=== PATIENT | female | born 1995 | race Caucasian/White ===

== ENCOUNTER 2019-03-04 09:00 | Emergency (ER) | payer OTHER ==
[2019-03-04 09:09] VITALS: BP 135/62
--- NOTE | 2019-03-04 09:30 | ED Physician Documentation ---
PD HPI URI - Stated complaint Stated Complaint: BODYACHE/THROAT PX - Chief complaint Chief Complaint: Heent - History obtained from History obtained from: Patient - History of Present Illness Timing - onset: How many days ago (2) Timing duration: Days (2) Timing details: Abrupt onset, Still present Associated symptoms: Nasal congestion, Sinus pain, Sore throat, Dry cough. No: Fever, Ear pain, Productive cough, Hemoptysis, Chest pain, Dyspnea, NVD Contributing factors: Other (none) Improves by: Nothing Worsened by: Other (nothing) Similar symptoms before: Has not had sx before Recently seen: Not recently seen - Treatment prior to arrival Treatment prior to arrival: ibuprofen but she ran out Review of Systems Ten Systems: 10 systems reviewed and negative Constitutional: reports: Fatigue, Other (body aches). denies: Fever, Chills Eyes: reports: Reviewed and negative Ears: reports: Reviewed and negative Nose: reports: Congestion, Sinus pressure / pain Throat: reports: Sore throat Respiratory: reports: Cough (dry nonproductive) GI: reports: Reviewed and negative. denies: Nausea, Vomiting Musculoskeletal: reports: Reviewed and negative Neurologic: reports: Headache Immunocompromised: reports: Reviewed and negative PD PAST MEDICAL HISTORY - Past Medical History Past Medical History: No - Past Surgical History Past Surgical History: No - Present Medications Home Medications: Ambulatory Orders Medication Instructions Recorded Confirmed Benzonatate [Tessalon Perle] 100 - 200 mg PO TID PRN #30 capsule 03/04/19 Oxymetazoline HCl [Afrin] 15 ml NS BID #1 spray 03/04/19 Pseudoephedrine HCl [Sudafed 240 mg PO DAILY PRN #10 tab.er.24h 03/04/19 24-Hour] - Allergies Allergies/Adverse Reactions: Allergies Allergy/AdvReac Type Severity Reaction Status Date / Time hydrocodone Allergy Hives Verified 03/04/19 09:09 - Social History Does the pt smoke?: No Smoking Status: Never smoker Does the pt drink ETOH?: No Does the pt have substance abuse?: No - Immunizations Immunizations are current?: Yes PD ED PE NORMAL - Vitals Vital signs reviewed: Yes - General General: Alert and oriented X 3, No acute distress, Well developed/nourished - HEENT HEENT: Atraumatic, PERRL, EOMI, Ears normal, Moist mucous membranes, Pharynx benign, Dentition benign - Neck Neck: Supple, no meningeal sign, No JVD - Cardiac Cardiac: RRR, No murmur, No gallop, No rub - Respiratory Respiratory: No respiratory distress, Clear bilaterally - Abdomen Abdomen: Non distended - Female Female : Deferred - Rectal Rectal: Deferred - Derm Derm: Normal color, Warm and dry, No rash - Extremities Extremities: No deformity - Neuro Neuro: Alert and oriented X 3 Eye Opening: Spontaneous Motor: Obeys Commands Verbal: Oriented GCS Score: 15 - Psych Psych: Normal mood, Normal affect PD ED PE EXPANDED - HEENT HEENT: Ears normal, Right maxillary sinus TTP, Left maxillary sinus TTP, Nasal congestion, Pharynx normal. No: Pharyngeal erythema, Swollen tonsils, Tonsillar exudate, Soft palate petecchiae Results - Vitals Vitals: Vital Signs - 24 hr 03/04/19 09:07 Temperature 36.6 C Heart Rate 93 Respiratory 16 Rate Blood Pressure 135/62 H O2 Saturation 100 Oxygen O2 Source Room air PD MEDICAL DECISION MAKING - ED course Complexity details: considered differential, d/w patient ED course: ddx- sinusitis, pharyngitis, allergic sinusitis, viral vs bacterial URI, flu 24 y/o F well appearing with no significant pmhx with sinusitis symptoms, sore throat, benign exam, normal pharynx. Doubt strep throat thus cancelled nurses order. Continue supportive care at home for likely viral sinusitis/URI. Departure - Departure Disposition: 01 Home, Self Care Clinical Impression: Sinusitis Qualifiers: Sinusitis location: ethmoidal Chronicity: acute Recurrence: not specified as recurrent Qualified Code(s): J01.20 - Acute ethmoidal sinusitis, unspecified Condition: Stable Record reviewed to determine appropriate education?: Yes Instructions: ED Sinusitis No Abx Follow-Up: your, doctor [Other] Prescriptions: Benzonatate [Tessalon Perle] 100 - 200 mg PO TID PRN #30 capsule PRN Reason: Cough Oxymetazoline HCl [Afrin] 15 ml NS BID #1 spray Pseudoephedrine HCl [Sudafed 24-Hour] 240 mg PO DAILY PRN #10 tab.er.24h PRN Reason: Cold Symptons Comments: You appear to have sinusitis. Take oral and nasal decongestants - sudafed and afrin as needed for congestion. Continue 600mg of ibuprofen (3 200mg tablets), three times a day as needed for headache or body aches Take tessalon perles as needed for cough. Follow up with your PMD if symptoms persist.
== END 2019-03-04 09:35 | disposition home or self-care (01) ==
LOC: ED 09:00
DX: J01.20 Acute ethmoidal sinusitis, unspecified (principal)
CPT/HCPCS: 87430; 99281; 99284

== ENCOUNTER 2021-09-21 08:29 | Outpatient (CLI) | payer OTHER ==
--- NOTE | 2021-09-21 16:25 | MRI Report ---
PROCEDURE: Wrist LT W/O INDICATIONS: PAIN IN LEFT WRIST TECHNIQUE: Noncontrast coronal proton density fast spin echo and T2 fast spin echo with fat saturation; coronal 3-D gradient echo, axial T1 spin echo and T2 fast spin echo with fat saturation, sagittal T1 spin ech o through the wrist. COMPARISON: None. FINDINGS: Image quality: Excellent. Bones and cartilage: The carpal bones are normally aligned. No bone marrow contusions or fractures. No evidence for avascular necrosis. Overlying cartilage surfaces appear normal. Carpal ligaments: The scapholunate and lunotriquetral ligaments appear intact. In the absence of in tra-articular contrast, the extrinsic carpal ligaments are not well identified. On sagittal images, the pisohamate ligament appears intact. Triangular fibrocartilage complex: The triangular fibrocartilage appears intact. The adjacent menis lois homolog appears normal in the absence of intra-articular contrast. The extensor carpi ulnaris te ndon is normal in location and morphology. Tendons and soft tissues: There is thickening of the extensor carpi radialis brevis tendons with intr asubstance T2 hyperintense signal at the level of proximal carpal row corresponding to patient's repo rted area of pain suggestive of tendinosis and low-grade intrasubstance partial thickness tear. The c arpal tunnel structures appear normal, including the median nerve. The ulnar nerve appears normal wi thin Guyon's canal. Rest of the extensor tendon compartments demonstrate normal morphology, without p athologic tendon sheath fluid. No soft tissue ganglion cysts. IMPRESSION: 1. Finding is suggestive of tendinosis and low-grade intrasubstance partial thickness tear involving extensor carpi radialis brevis tendon at the level of proximal carpal row. No full-thickness tendon r upture. Rest of the extensor and flexor tendons are intact. 2. Intrinsic and extrinsic wrist ligaments are intact. Triangular fibrocartilage complex is intact. 3. No marrow edema. No fracture or dislocation. Reviewed by: Champ Clements MD on 09/21/2021 4:24 PM PST Approved by: Champ Clements MD on 09/21/2021 4:24 PM PST Station ID: [id number]
== END 2021-09-21 08:30 | disposition home or self-care (01) ==
LOC: DI 08:29
DX: R93.6 Abnormal findings on diagnostic imaging of limbs (principal); R93.89 Abnormal findings on diagnostic imaging of other specified body structures

== ENCOUNTER 2021-10-12 13:26 | Emergency (ER) | payer OTHER ==
[2021-10-12 13:45] VITALS: BP 160/65
--- NOTE | 2021-10-12 13:56 | XRAY Report ---
PROCEDURE: Chest 1 View X-Ray INDICATIONS: Chest pain TECHNIQUE: One view of the chest was acquired. COMPARISON: None FINDINGS: Surgical changes and devices: None. Lungs and pleura: No pleural effusions or pneumothorax. Lungs are clear. Mediastinum: Mediastinal contours appear normal. Heart size is normal. Bones and chest wall: No suspicious bony lesions. Overlying soft tissues appear unremarkable. IMPRESSION: No acute cardio pulmonary findings Reviewed by: Rosalino Hernandez MD on 10/12/2021 12:54 PM [facility] Approved by: Rosalino Hernandez MD on 10/12/2021 12:54 PM [facility] Station ID: [id number]
[2021-10-12 14:04] LABS: BASOPHILS # (AUTO) 0.1 10^3/uL (0.0-0.1); BASOPHILS % (AUTO) 0.4 %; EOSINOPHILS % (AUTO) 0.2 %; HCT - HEMATOCRIT 38.3 % (37.0-47.0); LYMPHOCYTES # (AUTO) 2.1 10^3/uL (1.5-3.5); LYMPHOCYTES % (AUTO) 18.7 %; MEAN CORPUSCULAR HEMOGLOBIN 30.2 pg (27.0-31.0); MEAN CORPUSCULAR HGB CONC 33.9 g/dL (32.0-36.0); MEAN CORPUSCULAR VOLUME 89.1 fL (81.0-99.0); MEAN PLATELET VOLUME 9.3 fL (7.9-10.8); MONOCYTES # (AUTO) 1.1 10^3/uL (0.0-1.0); NEUTROPHILS % (AUTO) 70.3 %; PLT - PLATELET COUNT 391 10^3/uL (130-450); RED CELL DISTRIBUTION WIDTH 12.1 % (12.0-15.0); WHITE BLOOD COUNT 11.4 x10^3/uL (4.8-10.8)
[2021-10-12 14:18] LABS: ALBUMIN 4.1 g/dL (3.2-5.5); ALBUMIN/GLOBULIN RATIO 1.5 (1.0-2.2); BILIRUBIN,TOTAL 0.7 mg/dL (0.2-1.0); CALCIUM 9.1 mg/dL (8.5-10.3); CREATININE 0.8 mg/dL (0.4-1.0); POTASSIUM 3.8 mmol/L (3.5-5.0); TOTAL PROTEIN 6.8 g/dL (6.7-8.2)
--- NOTE | 2021-10-12 14:45 | ED Physician Documentation ---
PD HPI CHEST PAIN - Stated complaint Stated Complaint: CHEST PX - Chief complaint Chief Complaint: Cardiac - History obtained from History obtained from: Patient - History of Present Illness Timing - onset: How many days ago (3) Timing - onset during: Rest, Light activity Timing - duration: Days (3) Timing - details: Gradual onset, Still present Quality: Aching Location: Substernal Radiation: Abdominal (epigastric area). No: Jaw, Neck, Back Worsened by: No: Inspiration, Movement Associated symptoms: Nausea. No: Shortness of air, Feeling faint / dizzy Similar symptoms before: Has not had sx before Recently seen: Clinic (had been seen for dental pain and swelling post wisdom tooth extraction and being Rx initially with ibuprofen TID and now several days into Medrol dose pack. Also on Amoxicillin. Onset chest pain today. PMD referred pt to ER for further eval.) Review of Systems Constitutional: denies: Fever, Chills Nose: denies: Rhinorrhea / runny nose, Congestion Throat: denies: Sore throat Cardiac: reports: Chest pain / pressure. denies: Palpitations, Pedal edema, Calf pain Respiratory: denies: Dyspnea, Cough GI: reports: Nausea. denies: Abdominal Pain, Vomiting, Diarrhea, Bloody / black stool PD PAST MEDICAL HISTORY - Past Medical History Cardiovascular: None Respiratory: None Endocrine/Autoimmune: None GI: None - Past Surgical History Past Surgical History: No - Present Medications Home Medications: Ambulatory Orders Medication Instructions Recorded Confirmed Benzonatate [Tessalon Perle] 100 - 200 mg PO TID PRN #30 capsule 03/04/19 Oxymetazoline HCl [Afrin] 15 ml NS BID #1 spray 03/04/19 Pseudoephedrine HCl [Sudafed 240 mg PO DAILY PRN #10 tab.er.24h 03/04/19 24-Hour] Famotidine [Pepcid] 20 mg PO BID 10 Days #20 tablet 10/12/21 - Allergies Allergies/Adverse Reactions: Allergies Allergy/AdvReac Type Severity Reaction Status Date / Time hydrocodone Allergy Hives Verified 10/12/21 13:28 - Social History Does the pt smoke?: No Smoking Status: Never smoker Does the pt drink ETOH?: No Does the pt have substance abuse?: No - Immunizations Immunizations are current?: Yes PD ED PE NORMAL - Vitals Vital signs reviewed: Yes - General General: Alert and oriented X 3, No acute distress, Well developed/nourished - HEENT HEENT: Pharynx benign - Neck Neck: Supple, no meningeal sign, No adenopathy - Cardiac Cardiac: RRR, No murmur - Respiratory Respiratory: Clear bilaterally, Other (no chestwall tenderness. ) - Abdomen Abdomen: Soft, Non tender - Derm Derm: Normal color, Warm and dry - Extremities Extremities: No tenderness to palpate, No edema, No calf tenderness / cord Results - Vitals Vitals: Vital Signs - 24 hr 10/12/21 13:28 Temperature 36.5 C Heart Rate 62 Respiratory 16 Rate Blood Pressure 160/65 H O2 Saturation 100 Oxygen O2 Source Room air - EKG (time done) 13:40 Rate: Rate (enter#) (70) Rhythm: NSR [place]: Normal Intervals: Normal [place] QRS: Normal Ischemia: Normal ST segments. No: ST elevation c/w ischemia, ST depression - Labs Labs: Laboratory Tests 10/12/21 10/12/21 10/12/21 13:58 13:58 13:58 WBC 11.4 H RBC 4.30 Hgb 13.0 Hct 38.3 MCV 89.1 MCH 30.2 MCHC 33.9 RDW 12.1 Plt Count 391 MPV 9.3 Neut # (Auto) 8.0 H Lymph # (Auto) 2.1 D[place]key # (Auto) 1.1 H Eos # (Auto) 0.0 Baso # (Auto) 0.1 Absolute Nucleated RBC 0.00 Nucleated RBC % 0.0 Sodium 139 Potassium 3.8 Chloride 103 Carbon Dioxide 27 Anion Gap 9.0 BUN 19 Creatinine 0.8 Estimated GFR (MDRD) 86 L Glucose 86 Calcium 9.1 Total Bilirubin 0.7 AST 16 ALT 18 Alkaline Phosphatase 46 Troponin I High Sens < 2.3 L Total Protein 6.8 Albumin 4.1 Globulin 2.7 Albumin/Globulin Ratio 1.5 Lipase 28 - Rads (name of study) chest xray Radiology: Prelim report reviewed (no acute), See rad report PD MEDICAL DECISION MAKING - ED course Complexity details: reviewed results (CXR, ECG, labs are good. ), re-evaluated patient (improved with GI meds. seems c/w esophageal pain. ), considered differential (She has localized pain in the right parasternal area. Nonpleuritic except with deep deep breaths. No chest wall tenderness. EKG, chest x-ray, blood tests are normal. Wells score 1.5 represents very low risk.), d/w patient Departure - Departure Disposition: 01 Home, Self Care Clinical Impression: Anterior chest wall pain, Esophagitis Condition: Stable Record reviewed to determine appropriate education?: Yes Instructions: ED Gastritis Follow-Up: RASHAAD Lewis [Provider Group] Prescriptions: Famotidine [Pepcid] 20 mg PO BID 10 Days #20 tablet Comments: EKG, chest x-ray, blood tests are normal without any signs of collapsed lung, pneumonia, fluid around the lung, heart attack or abnormal heart rhythm. Your risk for blood clots is very low based on scoring system called Wells criteria. I think your symptoms are related to irritation of the stomach and esophagus from the recent anti-inflammatories. I would have you discontinue the methylprednisolone. You can finish out the amoxicillin. 4 pain I would suggest Tylenol every 4-6 hours if needed. You can also use antacids such as Maalox Mylanta Tums etc. I would suggest an acid reducing medicine such as famotidine for 7 to 10 days as directed. Recheck if not improving well over the next couple of days. Return if worsening. Discharge Date/Time: 10/12/21 16:08
[2021-10-12] MEDS ORDERED: MAG HYDROX/AL HYDROX/SIMETH 30 ML UDC PO STA (15:20)
[2021-10-12] MEDS ORDERED: LIDOCAINE VISCOUS 2% 15 ML UDC MM STA (15:20)
== END 2021-10-12 16:08 | disposition home or self-care (01) ==
LOC: ED 13:26
DX: R07.89 Other chest pain (principal); K20.90 Esophagitis, unspecified without bleeding
CPT/HCPCS: 36415; 71045; 80053; 83690; 84484; 85025; 93005; 99283; 99284; A9270